=== PATIENT | female | born 1980 | race Caucasian/White ===

== ENCOUNTER 2016-11-08 06:23 | Day surgery (SDC) | payer OTHER ==
[~2016-11-08] VITALS: Ht 162.6 cm; Wt 96.6 kg
[2016-11-08] MEDS ORDERED: BUPIVACAINE-MPF/EPI 0.25% 10 ML VIAL INJ ONE (07:14)
[2016-11-08] MEDS ORDERED: ROCURONIUM 50 MG/5 ML VIAL IV ONE (08:05)
[2016-11-08] MEDS ORDERED: SUCCINYLCHOLINE CHLORIDE 200 MG/10 ML VIAL IV ONE (08:05)
[2016-11-08] MEDS ORDERED: PROPOFOL 200 MG/20 ML VIAL IV ONE (08:05)
[2016-11-08] MEDS ORDERED: SEVOFLURANE 250 ML BTL INH ONE (08:05)
[2016-11-08] MEDS ORDERED: ONDANSETRON 4 MG/2 ML VIAL IVP ONE (08:05)
[2016-11-08] MEDS ORDERED: DEXAMETHASONE 4 MG/ML VIAL IVP ONE (08:05)
[2016-11-08] MEDS ORDERED: MIDAZOLAM 2 MG/2 ML VIAL ONE (08:16)
[2016-11-08] MEDS ORDERED: fentaNYL 0.05 MG/ML VIAL ONE (08:17)
[2016-11-08] MEDS ORDERED: MEPERIDINE 50 MG/ML SYR ONE (08:17)
[2016-11-08] MEDS ORDERED: LACTATED RINGERS 1,000 ML IV SCH (08:56)
[2016-11-08] MEDS ORDERED: MEPERIDINE 25 MG/ML SYR IVP PRN (09:00)
[2016-11-08] MEDS ORDERED: ONDANSETRON 4 MG/2 ML VIAL IVP PRN (09:00)
[2016-11-08] MEDS ORDERED: diphenhydrAMINE 50 MG/ML VIAL IVP PRN (09:00)
[2016-11-08] MEDS ORDERED: OMEP20TC10 PO (09:09)
[2016-11-08] MEDS ORDERED: VITA-415 PO (09:09)
[2016-11-08] MEDS ORDERED: CHOL100037 PO (09:09)
[2016-11-08] MEDS ORDERED: LACT1CAP65 PO (09:09)
[2016-11-08] MEDS ORDERED: [UNRECOGNIZED DRUG - CODE] PO (09:09)
[2016-11-08] MEDS ORDERED: ONDANSETRON 4 MG/2 ML VIAL IV PRN (09:30)
[2016-11-08] MEDS ORDERED: MORPHINE SULFATE 2 MG/ML SYR IVP PRN (09:30)
[2016-11-08] MEDS ORDERED: MORPHINE SULFATE 4 MG/ML SYR IV PRN (09:30)
[2016-11-08] MEDS ORDERED: NACL 0.9% 1,000 ML IV SCH (09:30)
[2016-11-08] MEDS ORDERED: HYDROcodone/APAP 5/325 MG 1 TAB TAB PO PRN (09:30)
[2016-11-08] MEDS ORDERED: HYDROmorphone 1 MG/ML AMP IVP PRN (09:30)
[2016-11-08] MEDS: HYDROmorphone 1 MG/ML AMP IVP PRN ×4 (09:50→10:20)
[2016-11-08] MEDS ORDERED: HYDROmorphone PFS 2 MG/ML SYR ONE (09:53)
== END 2016-11-08 13:55 | disposition home or self-care (01) ==
LOC: MOR 06:23 → MMU 06:24 → MOR 13:55
PROVIDERS: ATTEND Surgery
DX: K80.20 Calculus of gallbladder without cholecystitis without obstruction (principal); E66.01 Morbid (severe) obesity due to excess calories; Z68.36 Body mass index [BMI] 36.0-36.9, adult; K21.9 Gastro-esophageal reflux disease without esophagitis; Z72.0 Tobacco use
CPT/HCPCS: 47562; 71010; 86886; 86900; 86901; J0330; J0690; J1100; J1170; J2175; J2250; J2270; J2405; J2704; J3010; J3490; J7030; J7060; J7120; 88304